=== PATIENT | female | born 1990 | race Asian ===

== ENCOUNTER 2025-06-26 22:02 | Inpatient (IN) ==
--- NOTE | 2025-06-26 22:19 | Obstetrical Progress Note ---
Date of Service June 26, 2025 Assessment & Plan (1) 35 weeks gestation of : (2) Decreased movement: Subjective 35 weeks, dec movement Physical Exam Genitourinary: nst PG Care Time/CCT Total # of Minutes Spent Total Time Spent with Patient: Total time spent is greater than 50% in coordination of care (as documented) at patient's floor/unit and/or counseling patient: Coding Level of Care Code None Diagnoses 35 weeks gestation of Z3A.35 Decreased movement O36.8190 CPT Codes Misx Procedure Codes - 28708 NST: 51578 NST ([id number]) INTELLIGENCE AGENT Miscellaneous Codes Misx Procedure Codes 38182 NST
--- NOTE | 2025-06-27 01:14 | Ultrasound Report ---
EXAM: US OB BPP w NST single CLINICAL HISTORY: Decreased movement TECHNIQUE: A biophysical profile ultrasound was performed. The BPP includes the following parameters: breathing movements, movements, tone, amniotic and fluid volume, COMPARISON: 06/20/2025 US OB follow-up FINDINGS: Gestational Age: 35 weeks 3 days by LMP Estimated Due Date (TJ): 07/28/2025 by LMP Gestational Age at Time of Scan: N/A Biophysical Profile Components: Breathing Movements: Not present Movement: Not present Tone: Not present Amniotic Fluid Volume: Normal (Normal (5 - 25 cm) Amniotic Fluid Index (ALVIN): [ 6.4 cm ] Single Deepest Pocket (SDP): [4.26 cm] Scoring: Breathing Movements: [0 points] Movement: [0 points] Tone: [0] Amniotic Fluid Volume: [2 points] Total Score: [2 out of 8] IMPRESSION: 1. Single live intrauterine at 35 weeks 3 days by LMP. 2. Cephalic presentation. 3. heart rate is 163 bpm 4. Placenta fundal. 5. The total biophysical score equals 2/8. 6. Mild prominent flow seen in the retroplacental region LMP: TJ by LMP: 07/28/2025 GA by LMP: 35 weeks 3 days TJ by prior AUA: 07/31/2025 TJ by today's AUA exam: N/A Disclaimer: anomalies may be present but not detected. Chromosomal abnormalities cannot be ruled out with certainty, even with the normal findings. [facility] was called at at 01:11 AM EST, 06/27/2025, and DOMINGUEZ Wright was informed regarding the presence of critical medical findings in the report. Electronically signed by Janusz Valentino 06-27-2025 01:13 AM
[2025-06-27] MEDS ORDERED: LACTATED RINGER'S 500 ML IV ONE (01:32)
[2025-06-27] MEDS: BETAMETH SOD PHOS/ACETATE IA 6 MG/ML ONE (01:53)
[2025-06-27] MEDS ORDERED: DEXAMETHASONE SOD INJ 4 MG/ML VIAL ONE (02:02)
[2025-06-27] MEDS ORDERED: PHENYLEPHRINE 100MCG/ML 5ML SYR ONE ×2 (02:02→02:44)
[2025-06-27] MEDS ORDERED: PHENYLEPHRINE HCL 25 MG/250 ML NSS IV ONE (02:02)
[2025-06-27] MEDS ORDERED: MoRPHine SULFATE PF 1 MG/ML 10 ML AMP/VIAL ONE (02:02)
[2025-06-27] MEDS ORDERED: ONDANSETRON INJ 2 MG/ML 2 ML VIAL ONE (02:02)
--- NOTE | 2025-06-27 02:02 | History & Physical Report ---
Date of Service June 27, 2025 Assessment & Plan (1) 35 weeks gestation of : (2) Non-reassuring electronic monitoring tracing: (3) Gestational diabetes mellitus (GDM) affecting , antepartum: Plan Discussed with couple that given ega and findings on testing, would rec proceeding with delivery via c/s given status. Although better variability recently seen, her bpp which was 2/10 would only get to 4/10 if ultimately nst became reactive. She verbalized understanding and agrees to proceed. Consent reviewed and signed. OR being readied. Anesth and peds aware. Labs drawn. IV abx ordered. History of Present Illness Chief Complaint: decreased fm. Primary Care Provider: NO PCP 34yo at 35+wks ega presents to LD after calling with decreased fm. Patient called around 930pm on 06/26 noting no movement all day. She had tried resting on side and drinking water and so was advised to present to LD for NST. On monitor fhts were reassuring, no decels but only small accels not meeting nst criteria. She was sent for bpp which returned 2/8 results, only points for dvp and on return to monitor fhts as far as variability but still given these results and her gestational age bpp findings at most would be 4/10. Patient specifically questioned about any med use or illicit drugs and denies. PNC c/b 1. GDM, diet controlled. 2. Anatomy u/s with ? CHD--> nl echo PNL RH pos, ri, gbs not done OBH: g1 GYNH: nl paps no stds Allergies Allergy/AdvReac Type Severity Reaction Status Date / Time No Known Allergies Allergy Verified 06/26/25 22:14 Home Medications Medication Instructions Recorded Confirmed Type qlypigxb-qps-Iy-FA PO 03/24/25 06/20/25 History [ Plus] acetone (urine) test (Ketone Urine #50 ea 05/27/25 06/20/25 Rx Test strips) blood sugar diagnostic (Accu-Chek #150 ea 05/27/25 06/20/25 Rx Guide test strips) lancets (Accu-Chek Softclix #150 ea 05/27/25 06/20/25 Rx Lancets) blood-glucose meter (Accu-Chek #1 ea 05/30/25 06/20/25 Rx Guide Glucose Meter) Patient History Medical History (Updated 06/27/25 @ 02:05 by Namrata Arias MD, FACOG) No known health problems Surgical History No pertinent past surgical history Family History Denies family history of Ovarian cancer Breast cancer Colorectal cancer Social History Smoking Status: Never smoker Second Hand Exposure: No; Do You Dip or Chew Tobacco: No; Hx Alcohol Use: No Hx Substance Use: No Preferred Language: Divehi Communication Ability: Effective marital status: marital status details: Markus Hassan (34) [phone] Current Living Situation: Spouse Current Living Situation Comment: Lives with current occupational status: student current occupation: Student at [employer] How many Children do You have: 0 Feels Safe at Home: Yes Safety Concerns: Feels Safe At This Time Review of Systems as per Subjective / HPI Physical Exam Constitutional: WD/WN, vitals as above Respiratory: normal respiratory effort, lungs clear to auscultation Cardiovascular: Rate/Rhythm: regular rate and regular rhythm Gastrointestinal (Abdomen): soft gravid nt Musculoskeletal: no edema nontender calves Neurologic: grossly normal Psychiatric: A+Ox3, euthymic affect Genitourinary: FHTs with minimal variability but improved in past 20min. Accels noted, some seem to meet 15 x 15 criteria. TOCO irregular ctx with no evidence of decels with these. Results & Data Vital Signs (Past 12 Hours) Vital Signs Temp Pulse Resp BP 06/26/25 22:21 97.9 F 20 06/26/25 22:19 84 137/87 Coding Level of Care Code None Diagnoses 35 weeks gestation of Z3A.35 Non-reassuring electronic monitoring tracing O36.8390 Gestational diabetes mellitus (GDM) affecting , antepartum O24.419
[2025-06-27] MEDS: ACETAMINOPHEN 500 MG TAB PO STA (02:07)
--- NOTE | 2025-06-27 02:10 | Anesthesiology Consultation ---
Date of Service June 27, 2025 Assessment & Plan (1) Encounter for pre-operative examination: Chart Review Chart Review: Acceptable Risk for Surgery and Patient NOT seen in Pre Admission Testing Consults Requested none History Height/Weight Height: 5 ft 4 in Weight: 81.193 kg Allergies Allergy/AdvReac Type Severity Reaction Status Date / Time No Known Allergies Allergy Verified 06/26/25 22:14 Medications Home Medications Medication Instructions Recorded Confirmed Last Taken [id number]-uke-Me-FA PO 03/24/25 06/20/25 Unknown [ Plus] acetone (urine) test (Ketone Urine #50 ea 05/27/25 06/20/25 Unknown Test strips) blood sugar diagnostic (Accu-Chek #150 ea 05/27/25 06/20/25 Unknown Guide test strips) lancets (Accu-Chek Softclix #150 ea 05/27/25 06/20/25 Unknown Lancets) blood-glucose meter (Accu-Chek #1 ea 05/30/25 06/20/25 Unknown Guide Glucose Meter) Past Medical History Medical History (Updated 06/27/25 @ 02:10 by Wilder Ferrer MD) Gestational diabetes mellitus (GDM) affecting , antepartum 35 weeks gestation of Encounter for pre-operative examination No known health problems Exercise / Class Metabolic Activity III < 4 Walking/Shop/Light housework Past Family History Family History Denies family history of Ovarian cancer Breast cancer Colorectal cancer Past Surgical History Surgical History No pertinent past surgical history Past Anesthesia History No Hx of Anesthesia Complications and No Family Hx of Anesthesia Complications Social History Smoking Status: Never smoker Do You Dip or Chew Tobacco: No Hx Alcohol Use: No Hx Substance Use: No Physical Exam Vital Signs Last Vital Signs Temp 36.6 C 06/26/25 22:21 Pulse 84 06/26/25 22:19 Resp 20 06/26/25 22:21 BP 137/87 06/26/25 22:19 Testing Laboratory Results 06/27/25 01:47 06/27/25 02:04 POC Glucose 109 H
[2025-06-27 02:11] LABS: Hematocrit (blood only) 35.2 % (37.0-47.0); Hemoglobin 12.0 g/dL (12.0-16.0); Immature Granulocytes # (auto) 0.04 K/uL (0.01-0.20); Immature Granulocytes % (auto) 0.5 %; Mean Corpuscular Hemoglobin 30.6 pg (25.0-34.0); Mean Corpuscular Volume 89.8 fL (80.0-100.0); Platelet Count 232 K/uL (130-400); RDW Standard Deviation 43.7 fL (36.4-46.3); Red Blood Count 3.92 M/uL (4.20-5.40); White Blood Count 8.82 K/ul (4.8-10.8)
[2025-06-27] MEDS: CITRIC ACID/SODIUM CITRATE 15 ML UDC PO STA (02:12)
[2025-06-27] MEDS ORDERED: NALBUPHINE HCL INJ 10 MG/ML AMP IV PRN (02:42)
[2025-06-27] MEDS ORDERED: PROMETHAZINE 6.25 MG/50.25 ML BAG IV PRN (02:42)
[2025-06-27] MEDS ORDERED: NALOXONE HCL 1 MG in SODIUM CHLORIDE 0.9% 1,000 ML IV PRN (02:42)
[2025-06-27] MEDS ORDERED: diphenhydrAMINE 50 MG/ML VIAL IV PRN ×2 (02:42→20:42)
[2025-06-27] MEDS ORDERED: NALOXONE HCL 0.4 MG/1 ML VIAL/CARP IV PRN (02:42)
[2025-06-27] MEDS ORDERED: HYDROmorphone INJ 0.5 MG/0.5 ML SYR IV PRN ×2 (02:42→20:42)
[2025-06-27] MEDS ORDERED: LACTATED RINGER'S 500 ML IV PRN (02:42)
[2025-06-27] MEDS ORDERED: DC INTRASPINAL MORPHINE SCH (02:45)
[2025-06-27] MEDS ORDERED: NO NARCOTICS OR SEDATIVES SCH (02:45)
[2025-06-27] MEDS: OXYTOCIN 20 UNITS/LR 1,002 ML IV SCH (03:00)
[2025-06-27] MEDS ORDERED: LACTATED RINGER'S 1,000 ML IV SCH (03:00)
--- NOTE | 2025-06-27 03:11 | Operative Report ---
Post Operative Report Pre & Post Diagnosis Operation Date: 06/27/25 02:10 Pre-Op Diagnosis: 1. 35 weeks iup 2. Non reassuring testing 3. GDM Post-Op Diagnosis: Same. I identified the patient and participated in the time-out.: Yes Procedure Operation Date: 06/27/25 02:10 Actual Procedures p Primary Low Transverse Section in with the of a live female child at 0237.(Bilateral) - Namrata Arias MD, FACOG Surgeon Namrata Arias MD, FACOG Associate Sales Representative RN Quantitative Blood Loss (QBL) 518 Findings Consistent with Post-Op Diagnosis (viable female apgars 8,9, thin meconium stained fluid. cord wrapped around leg tightly x 4. normal uterus, tubes and ovaries bilaterally) Fluids 600 Specimens cord blood, cord gases and placenta Drains bacon Anesthesia Type Spinal Complications none Disposition Accompanied Patient To Recovery: No Disposition: L&D Indications 34yo at 35+wks ega presents to with decreased movement with ultimately poor testing with recommendation for delivery. Description of Procedure The patient was taken to the operating room and identified. After adequate anesthesia was obtained, she was placed in the supine position with a leftward tilt on the operating table and prepped and draped in the usual sterile fashion. A bacon catheter had already been placed. The knife was used to create a Pfannensteil skin incision that was carried down to the underlying layer of fascia. The fascia was nicked in the midline and this opening was extended laterally using Nation scissors. Aiyana clamps were placed on the superior and inferior aspect of the fascial incision tenting it upward and the underlying rectus muscles were dissected off the overlying fascia both sharply and bluntly using Nation scissors. The rectus muscles were bluntly in the midline. The peritoneal cavity was bluntly entered into. This opening was stretched. The bladder blade was placed. The vesicouterine peritoneum was elevated and opened up into and the bladder flap was created digitally and bladder blade was replaced. The knife was used to create a hysterotomy and this opening was stretched. The operators hand was placed through the hysterotomy and the bladder blade was removed. The head was elevated and flexed and with fundal pressure the head was delivered. The shoulders and body were rapidly delivered. was crying at . Thin dark meconium stained fluid was noted. The cord was wrapped around leg x 4. The cord was clamped and cut at about 30 sec of life and the 's mouth and nares were bulb suction. The was handed off to the awaiting pediatricians. Cord blood was obtained. Cord gases were obtained. The placenta was manually expressed. The uterus was exteriorized and cleared of all clots and debris. Dilute IV Pitocin was begun. The uterine tone was improving. The hysterotomy was closed in a running interlocking fashion using 0 Vicryl followed by a second imbricating layer of 0 Vicryl. The hysterotomy was hemostatic. The pelvis was irrigated. The uterus was returned to the abdomen. The gutters were cleared of all clots and debris. The hysterotomy was reinspected and noted to be hemostatic. The fascia was then closed in running fashion using 0 Vicryl. The subcutaneous fat was copiously irrigated and reapproximated using 2-0 chromic. The skin was closed in a subcuticular fashion using 4-0 monocryl. At this point the procedure was terminated. The patient was transferred to the recovery room in stable condition. All sponge, lap and needle counts are correct x2. I attest to the content of the Intraoperative Record and any orders documented therein. Any exceptions are noted below. OB Procedure Charges 57979
[2025-06-27 03:12] LABS: Base Excess Cord Venous Blood -0.2 mEq/L (-7.7-1.9); Cord Venous Blood PO2 37 mmHg (14.1-43.3); O2 Saturation Cord Venous Bld 77.8 % (<68)
[2025-06-27 03:12] LABS: Base Excess Cord Arterial Bld -1.1 mEq/L (-9-1.8); CO2 Cord Arterial Blood 45 mmHg (39.1-73.5); HCO3 Cord Arterial Blood 25 mmol/L (19.7-28.5); Oxygen Sat Cord Arterial Blood < 60.0 % (<60); PO2 Cord Arterial Blood < 20 mmHg (4.1-31.7); pH Cord Arterial Blood 7.35 (7.1-7.38)
--- NOTE | 2025-06-27 03:26 | Anesthesiology Progress Note ---
Date of Service June 27, 2025 Anesthesia Post Procedure Vital Signs Vital Signs: Temp Pulse Resp BP Pulse Ox 06/27/25 03:20 89 100 06/27/25 03:17 92 H 106/56 L 06/26/25 22:21 36.6 C 20 06/26/25 22:19 84 137/87 Transfer of Care Handoff Completed per policy Notes Mental Status: alert / awake / arousable and participated in evaluation Patient Amnestic to Procedure: No Nausea / Vomiting: adequately controlled Pain: adequately controlled Airway Patency, RR, SpO2: stable & adequate BP & HR: stable & adequate Hydration State: stable & adequate Neuraxial Anesthesia: was administered and sensory block is resolving Anesthetic Complications: no major complications apparent and Pt Satisfied with anesthetic care
[2025-06-27] MEDS ORDERED: HYDROCORTISONE ACETATE 25 MG SUPP PR PRN (03:43)
[2025-06-27] MEDS ORDERED: BENZOCAINE 20% SPRY 85 APPLN/85 GM CAN EXT PRN (03:43)
[2025-06-27] MEDS ORDERED: MAGNESIUM HYDROXIDE SUSP 30 ML UDC PO PRN (03:43)
[2025-06-27] MEDS ORDERED: SENNA 8.6 MG TAB PO PRN (03:43)
[2025-06-27] MEDS ORDERED: CALCIUM CARBONATE 500 MG CHEWABLE TAB PO PRN (03:43)
[2025-06-27] MEDS: KETOROLAC 30 MG/ML VIAL IV SCH (04:18)
[2025-06-27] MEDS: DIPHTHER/TETAN/PERTUS Vaccine (Tdap, Adol/Adult) 0.5mL IM ONE (04:38)
[2025-06-27] MEDS: DOCUSATE SODIUM 100 MG CAP PO SCH (10:22)
[2025-06-27] MEDS: PRENATAL VITAMIN 1 TAB PO SCH (10:23)
[2025-06-27] MEDS: ACETAMINOPHEN 325 MG TAB PO SCH (10:23)
[2025-06-27] MEDS: FERROUS SULFATE 325 MG TAB PO SCH (10:23)
[2025-06-27] MEDS: SIMETHICONE 80 MG CHEW PO SCH (10:23)
[2025-06-27] MEDS: ONDANSETRON INJ 2 MG/ML 2 ML VIAL IV PRN (12:06)
[2025-06-27] MEDS: NALOXONE HCL 0.08 MG in SYRINGE 1.8 ML IV PRN (17:25)
[2025-06-27] MEDS ORDERED: PROMETHAZINE 12.5 MG/50.5 ML BAG IV PRN (20:42)
[2025-06-27] MEDS ORDERED: diphenhydrAMINE Capsule 25 MG CAP PO PRN (20:42)
[2025-06-27] MEDS ORDERED: ZOLPIDEM TARTRATE 5 MG TAB PO PRN (20:42)
[2025-06-27] MEDS ORDERED: ONDANSETRON INJ 2 MG/ML 2 ML VIAL IV PRN (20:42)
[2025-06-28] MEDS ORDERED: KETOROLAC 30 MG/ML VIAL IV PRN (03:18)
[2025-06-28] MEDS: IBUPROFEN 600 MG TAB PO SCH (03:19)
[2025-06-28 06:44] LABS: Hematocrit (blood only) 29.8 % (37.0-47.0); Hemoglobin 10.0 g/dL (12.0-16.0); Immature Granulocytes # (auto) 0.06 K/uL (0.01-0.20); Immature Granulocytes % (auto) 0.6 %; Mean Corpuscular Hemoglobin 30.4 pg (25.0-34.0); Mean Corpuscular Volume 90.6 fL (80.0-100.0); Platelet Count 224 K/uL (130-400); RDW Standard Deviation 44.2 fL (36.4-46.3); Red Blood Count 3.29 M/uL (4.20-5.40); White Blood Count 10.81 K/ul (4.8-10.8)
--- NOTE | 2025-06-28 06:44 | Obstetrical Progress Note ---
Date of Service June 28, 2025 Assessment & Plan (1) Gestational diabetes mellitus (GDM) affecting , antepartum: (2) Status post section: Plan 34 yo post- day 1 s/p Fells well today. Vital signs stable Continue post- care Encourage ambulation and Pain controlled with ibuprofen Hgb stable Discharge home tomorrow, follow up with in 6 weeks. Admission and Anticipated Discharge Date Admission Date: June 27, 2025 Supervising Physician Co-Signing Physician Notes Patient seen with resident and agree with the above findings plan. Continue routine care. Subjective 34 yo post- day 1 s/p Ambulation: ambulating normally Voiding: no voiding problems Passing Gas:: Yes Diet Tolerance:: regular diet Lochia:: Small Feeding Type:: breast feeding Current Pain Level:Slight pain Resting comfortably this AM in NAD. Denies COUCH, CP, SOB, N/V/D, LE pain/swelling. Review of Systems Review of Systems: As per HPI. Physical Exam Physical Exam: General: patient resting comfortably, NAD, non-toxic in appearance, AA&O x 4, answers questions appropriately. Skin: warm, dry, intact HEENT: NC/AT, anicteric sclera, conjunctiva without injection, moist mucus membranes. Heart: +S1/S2, regular, no m/r/g Lungs: equal air entry bilaterally, no rales/rhonchi/wheezes Abd: +BS, soft, NT/ND, uterine fundus firm at umbilicus, caesarean incision C/D/I. Ext: warm, no clubbing/cyanosis or edema, Prakash's neg.Neuro: nonfocal, patient AA&O x 4, speech intact, no facial droop, moving all extremities on command Results & Data Vital Signs (Past 12 Hours) Vital Signs Temp Pulse Resp BP Pulse Ox O2 Del Method 06/27/25 23:15 36.6 C 72 16 100/59 L 95 Room Air 06/27/25 20:00 16 93 06/27/25 19:15 16 95 06/27/25 19:15 36.7 C 87 16 115/66 95 Room Air Resident Activity Tracking Resident Involvement: Resident Care Provided Care Provided: Adult [facility] Medicine
[2025-06-28] MEDS: SODIUM CHLORIDE 0.9% 1,000 ML IV SCH (19:14)
[2025-06-28] MEDS: LACTATED RINGER'S 1,000 ML IV SCH ×2 (19:14)
[2025-06-28] MEDS: MoRPHine SULFATE PF 1 MG/ML 10 ML AMP/VIAL INT SPINAL ONE (19:14)
[2025-06-28] MEDS: MEASLES, MUMPS & RUBELLA VIRUS VACCINE (MMR) 0.5ML VIAL SQ ONE (19:15)
[2025-06-29] MEDS: IBUPROFEN 600 MG TAB PO PRN (03:11)
[2025-06-29 06:36] LABS: Hematocrit (blood only) 28.9 % (37.0-47.0); Hemoglobin 10.0 g/dL (12.0-16.0)
--- NOTE | 2025-06-29 06:59 | Obstetrical Progress Note ---
Date of Service June 29, 2025 Assessment & Plan (1) Gestational diabetes mellitus (GDM) affecting , antepartum: (2) Status post section: Plan 34 yo post- day 2 s/p Fells well today. Vital signs stable Continue post- care Encourage ambulation and Pain controlled with ibuprofen Hgb stable Discharge home tomorrow, follow up with in 6 weeks. Admission and Anticipated Discharge Date Admission Date: June 27, 2025 Supervising Physician Co-Signing Physician Notes Resident Physician Supervision Note: I interviewed and examined the patient. Discussed with Dr. Mccracken and agree with findings and plan as documented in the note. Any exceptions or clarifications are listed here: Doing well. Does not desire d/c at this point. Will need to see creative consultant. Plan d/c tomorrow. Documented By: Amber Mckoy MD, FACOG Subjective 34 yo post- day 2 s/p Ambulation: ambulating normally Voiding: no voiding problems Passing Gas:: Yes Diet Tolerance:: regular diet Lochia:: Small Feeding Type:: breast feeding Current Pain Level:Slight pain Resting comfortably this AM in NAD. Denies COUCH, CP, SOB, N/V/D, LE pain/swelling. Review of Systems Review of Systems: As per HPI. Physical Exam Physical Exam: General: patient resting comfortably, NAD, non-toxic in appearance, AA&O x 4, answers questions appropriately. Skin: warm, dry, intact HEENT: NC/AT, anicteric sclera, conjunctiva without injection, moist mucus membranes. Heart: +S1/S2, regular, no m/r/g Lungs: equal air entry bilaterally, no rales/rhonchi/wheezes Abd: +BS, soft, NT/ND, uterine fundus firm at umbilicus, caesarean incision C/D/I. Ext: warm, no clubbing/cyanosis or edema, Prakash's neg.Neuro: nonfocal, patient AA&O x 4, speech intact, no facial droop, moving all extremities on command Results & Data Vital Signs (Past 12 Hours) Vital Signs Temp Pulse Resp BP Pulse Ox O2 Del Method 06/28/25 23:20 36.5 C 80 18 125/75 97 Room Air 06/28/25 19:55 36.3 C L 84 18 117/72 97 Room Air Resident Activity Tracking Resident Involvement: Resident Care Provided Care Provided: Adult Hospital Medicine
[2025-06-29] MEDS: ACETAMINOPHEN 325 MG TAB PO PRN (09:38)
--- NOTE | 2025-06-30 07:35 | Obstetrical Progress Note ---
Date of Service June 30, 2025 Assessment & Plan (1) Status post section: Postoperative day #3 patient is doing well she is ambulating she has no extremity pain her bleeding is minimal we will continue current care Subjective Ambulation: ambulating normally Voiding: no voiding problems Passing Gas:: Yes Diet Tolerance:: regular diet Physical Exam Constitutional WD/WN, vitals as above well developed and well nourished Respiratory normal respiratory effort, lungs clear to auscultation normal respiratory effort Cardiovascular RRR, no murmur, no edema Gastrointestinal (Abdomen) normal bowel sounds, soft, nontender, no hepatosplenomegaly Results & Data Vital Signs (Past 12 Hours) Vital Signs Temp Pulse Pulse Resp BP Pulse Ox O2 Del Method 06/29/25 22:27 98.1 F 73 18 123/82 Room Air 06/29/25 20:20 Room Air 06/29/25 20:20 97.7 F 85 16 124/79 97 Room Air
--- NOTE | 2025-07-01 07:28 | Obstetrical Progress Note ---
Date of Service July 01, 2025 Assessment & Plan (1) Gestational diabetes mellitus (GDM) affecting , antepartum: (2) Status post section: Plan 34 yo post- day 4 s/p Fells well today. Vital signs stable Continue post- care Encourage ambulation and Pain controlled with ibuprofen Hgb stable Discharge home tomorrow, follow up with in 6 weeks. Admission and Anticipated Discharge Date Admission Date: June 27, 2025 Supervising Physician Co-Signing Physician Notes Resident Physician Supervision Note: I interviewed and examined the patient. Discussed with Dr. Arredondo and agree with findings and plan as documented in the note. Any exceptions or clarifications are listed here: POD4 doing well. DC home. Rx sent #10 tabs oxycodone. Documented By: Barbara Washington, DO Subjective 34 yo post- day 4 s/p Ambulation: ambulating normally Voiding: no voiding problems Passing Gas:: Yes Diet Tolerance:: regular diet Lochia:: Small Feeding Type:: breast feeding Current Pain Level:Slight pain Resting comfortably this AM in NAD. Denies COUCH, CP, SOB, N/V/D, LE pain/swelling. Review of Systems Review of Systems: As per HPI. Physical Exam Physical Exam: General: patient resting comfortably, NAD, non-toxic in appearance, AA&O x 4, answers questions appropriately. Skin: warm, dry, intact HEENT: NC/AT, anicteric sclera, conjunctiva without injection, moist mucus membranes. Heart: +S1/S2, regular, no m/r/g Lungs: equal air entry bilaterally, no rales/rhonchi/wheezes Abd: +BS, soft, NT/ND, uterine fundus firm at umbilicus, caesarean incision C/D/I. Ext: warm, no clubbing/cyanosis or edema, Prakash's neg. Results & Data Vital Signs (Past 12 Hours) Vital Signs Temp Pulse Resp BP Pulse Ox O2 Del Method 07/01/25 03:05 36.6 C 71 20 124/78 96 Room Air 06/30/25 20:15 Room Air 06/30/25 20:15 36.7 C 80 18 118/77 97 Room Air Resident Activity Tracking Resident Involvement: Resident Care Provided Care Provided: Adult Hospital Medicine
[2025-07-01 09:01] VITALS: BP 136/89; PULSE 79; RESP 16; TEMP 97.3; O2SAT 98
--- NOTE | 2025-07-05 13:58 | Discharge Summary ---
Date of Service July 05, 2025 Admission HPI Per Admitting Provider 34yo at 35+wks donna presents to LD after calling with decreased fm. Patient called around 930pm on 06/26 noting no movement all day. She had tried resting on side and drinking water and so was advised to present to LD for NST. On monitor fhts were reassuring, no decels but only small accels not meeting nst criteria. She was sent for bpp which returned 2/8 results, only points for dvp and on return to monitor fhts as far as variability but still given these results and her gestational age bpp findings at most would be 4/10. Patient specifically questioned about any med use or illicit drugs and denies. PNC c/b 1. GDM, diet controlled. 2. Anatomy u/s with ? CHD--> nl echo PNL RH pos, ri, gbs not done OBH: g1 GYNH: nl paps no stds Discharge Data Consultations 06/27/25 01:55 Consult Anesthesiology Stat Procedures Performed Operation Date: 06/27/25 02:10 Actual Procedures p Primary Low Transverse Section in LD with the of a live female child at 0237.(Bilateral) - Namrata Arias MD, [facility] Hospital Course (1) Non-reassuring electronic monitoring tracing: (2) Decreased movement: (3) 35 weeks gestation of : Plan Given above bpp at gestational age the patient underwent the above stated procedure without incident and her postoperative course and recovery was uncomplicated. On her postoperative day #4 she was tolerating a regular diet, voiding spontaneously, ambulating without problem and was using oral meds for adequate pain control. Her postoperative hemoglobin was 10.0. She was given written and verbal discharge instructions and told to followup in office at 6wks. She was given appropriate pain medicine prescriptions. Coding Level of Care Code None Diagnoses Non-reassuring electronic monitoring tracing O36.8390 Decreased movement O36.8190 35 weeks gestation of Z3A.35
== END 2025-07-01 13:00 | disposition home or self-care (01) | DRG 788 ==
LOC: OPB 22:02 → 4S1 22:04 → 4E2 06-27 05:54
DX: O77.0 Labor and delivery complicated by meconium in amniotic fluid; Z3A.35 35 weeks gestation of pregnancy; Z79.899 Other long term (current) drug therapy; Z37.0 Single live birth; O36.8130 Decreased fetal movements, third trimester, not applicable or unspecified; O28.3 Abnormal ultrasonic finding on antenatal screening of mother; O24.420 Gestational diabetes mellitus in childbirth, diet controlled